=== PATIENT | male | born 1975 | race Caucasian/White ===

== ENCOUNTER 2017-02-06 21:36 | Emergency (ER) | payer SELFPAY ==
[~2017-02-06] VITALS: Ht 175.3 cm; Wt 69.9 kg
--- NOTE | 2017-02-06 21:40 | NUR ---
CALLED PT NAME [id number] NO RESPONSE IN WAITING ROOM.
--- NOTE | 2017-02-06 22:26 | NUR ---
CALLED PT NAME [id number] NO RESPONSE IN WAITING ROOM.
--- NOTE | 2017-02-06 23:00 | NUR ---
TO BED 2 A 41 YO MALE BIBSELF, C/O RUQ ABD PAIN SINCE LAST NIGHT. -N/V. AFEBRILE. VSS. NONDIAPHORETIC. GOWNED. COMFORT MEASURES RENDERED. AWAITING FOR ER MD SHABAZZ.
[2017-02-06] MEDS ORDERED: MORPHINE SULFATE INJ 4 MG/ML DISP.SYRIN ONE (23:49)
[2017-02-06] MEDS ORDERED: ONDANSETRON 4 MG TAB.RAPDIS ONE (23:49)
[2017-02-07] MEDS ORDERED: ONDANSETRON 4 MG TAB.RAPDIS SL ONE
[2017-02-07] MEDS ORDERED: MORPHINE SULFATE INJ 2 MG/ML DISP.SYRIN SQ ONE
--- NOTE | 2017-02-07 00:02 | NUR ---
MEDICATED PATIENT ORDERED BY DR ROBERTS. MAIL OFFICER AT BEDSIDE FOR EVAL.
[2017-02-07 00:09] LABS: BASOPHILS % (AUTO) 0.5 % (0.0-2.0); EOSINOPHILS # (AUTO) 0.1 /CMM (0.0-0.7); EOSINOPHILS % (AUTO) 1.1 % (0.0-6.0); HEMATOCRIT 46 % (39-51); HEMOGLOBIN 15.2 g/dL (13.5-17.5); LYMPHOCYTES # (AUTO) 2.3 /CMM (0.8-4.8); LYMPHOCYTES % (AUTO) 27.9 % (20.0-44.0); MEAN CORPUSCULAR HEMOGLOBIN 30 PG (26.0-33.0); MEAN CORPUSCULAR HGB CONC 34 g/dl (31.0-36.0); MEAN CORPUSCULAR VOLUME 88 fL (80-96); MONOCYTES # (AUTO) 0.8 /CMM (0.1-1.30); MONOCYTES % (AUTO) 9.5 % (2.0-12.0); NEUTROPHILS # (AUTO) 5.1 /CMM (1.8-8.9); PLATELET COUNT (AUTO) 195 /CMM (150-450); RED BLOOD CELL COUNT(AUTO) 5.16 MIL/uL (4.5-6.0); WHITE BLOOD COUNT (AUTO) 8.3 K/uL (4.3-11.0)
[2017-02-07 00:19] LABS: CALCIUM, SERUM 9.1 mg/dL (8.5-10.1); CREATININE 0.9 mg/dL (0.6-1.3); POTASSIUM 3.9 mmol/L (3.5-5.1)
[2017-02-07 00:22] LABS: INR 0.98 (0.87-1.13); PROTHROMBIN TIME 10.5 SECS (9.5-12.7)
[2017-02-07 00:32] LABS: ALBUMIN 3.5 g/dL (3.4-5.0); BILIRUBIN,DIRECT 0.2 mg/dL (0.0-0.2); TOTAL PROTEIN, SERUM 7.3 g/dL (6.4-8.2)
[2017-02-07] MEDS ORDERED: FAMOTIDINE (20 MG) 20 MG TABLET ONE (01:35)
--- NOTE | 2017-02-07 01:54 | NUR ---
Patient discharged to home in stable condition. Written and verbal after care instructions given. Patient verbalizes understanding of instruction. ambulatory with a steady gait
[2017-02-07 01:58] VITALS: BP 124/81
[2017-02-07] MEDS ORDERED: FAMOTIDINE (20 MG) 20 MG TABLET PO ONE (02:00)
[2017-02-07] MEDS ORDERED: FAMOTIDINE/PF INJ 20 MG/2 ML VIAL IV ONE (02:00)
== END 2017-02-07 01:59 | disposition home or self-care (01) ==
LOC: ER 21:37
DX: K21.9 Gastro-esophageal reflux disease without esophagitis (principal); R63.4 Abnormal weight loss; F17.200 Nicotine dependence, unspecified, uncomplicated
CPT/HCPCS: 36415; 76705; 80048; 80076; 83690; 85025; 85730; 96372; 99285; A4606; J2270; Q0162; Z7610